=== PATIENT | male | born 2005 | race Caucasian/White ===

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

== ENCOUNTER → 2025-01-13 09:54 | Outpatient (BNVA) | payer BC, MEDICAID, SELFPAY | PROVIDERS: Family Provider Nurse Practitioner; PCP Nurse Practitioner; Visit Provider Clinical Nurse Specialist Adult Health | DX: R50.9 Fever, unspecified (principal); Z91.89 Other specified personal risk factors, not elsewhere classified | CPT/HCPCS: 86618; 86666; 86757 ==

== ENCOUNTER → 2025-02-17 11:26 | Outpatient (BNVA) | payer BC, MEDICAID, SELFPAY | PROVIDERS: Family Provider Nurse Practitioner; PCP Nurse Practitioner; Visit Provider Nurse Practitioner | DX: Z13.6 Encounter for screening for cardiovascular disorders (principal); R74.01 Elevation of levels of liver transaminase levels; E55.9 Vitamin D deficiency, unspecified | CPT/HCPCS: 80053; 80061; 82306; 82607; 85025; 85651; 86140; 87491; 87591 ==

== ENCOUNTER 2025-02-27 10:33 | Outpatient (CLI) | payer BC, MEDICAID, SELFPAY ==
--- NOTE | 2025-02-27 10:36 | XR_ITS ---
WS: [email or web address] XR knee LT 3V* [id number] REASON FOR EXAM: M25.50 - Pain in unspecified joint FINDINGS: No fracture or focal bone lesion. Joint spaces of the left knee are intact and well preserved. XR/XR knee LT 3V* [id number] IMPRESSION: No significant abnormality.
--- NOTE | 2025-02-27 10:36 | XR_ITS ---
WS: [email or web address] XR knee RT 3V* [id number] REASON FOR EXAM: M25.50 - Pain in unspecified joint FINDINGS: No fracture or focal bone lesion. Joint spaces of the knee are intact and well preserved. No radiopaque foreign body identified. XR/XR knee RT 3V* [id number] IMPRESSION: No significant bone or joint abnormality.
--- NOTE | 2025-02-27 10:36 | XR_ITS ---
WS: [email or web address] XR lumbar spine 2-3V* [id number] REASON FOR EXAM: M25.50 - Pain in unspecified joint FINDINGS: Mild straightening of the normal lordosis. No vertebral body compression deformity or focal lesion. Intervertebral disc spaces are intact and well preserved. No spondylolysis. No significant spondylolisthesis. XR/XR lumbar spine 2-3V* [id number] IMPRESSION: Mild straightening of the normal lordosis. Examination is otherwise unremarkabl e.
--- NOTE | 2025-02-27 10:45 | US_ITS ---
WS: [id number] RIGHT UPPER QUADRANT ULTRASOUND HISTORY: R74.01 - Elevation of levels of liver transaminase levels COMPARISON: 07/08/2016 Liver: 16.7 cm in length. Normal size liver. Moderate hepatic steatosis has developed since 2017. No intra paddock duct dilatation. Portal Vein: Normal hepatopetal flow with monophasic waveform. Gallbladder: Normally distended gallbladder with no stones or wall thickening. CBD: 0.4 cm Pancreas: Normal size and echogenicity. Right kidney: 10.8 cm in length. Normal size and echogenicity. No hydronephrosis or mass. Aorta and IVC: Unremarkable abdominal aorta and IVC. No ascites. US/US liver [id number] IMPRESSION: 1. Normal gallbladder. 2. Mild diffuse hepatic steatosis. New since 2017.
== END 2025-02-27 10:34 | disposition home or self-care (01) ==
LOC: RAD 10:34
PROVIDERS: PCP Nurse Practitioner; Visit Provider Nurse Practitioner
DX: R74.01 Elevation of levels of liver transaminase levels (principal); M40.46 Postural lordosis, lumbar region; K76.0 Fatty (change of) liver, not elsewhere classified; M40.56 Lordosis, unspecified, lumbar region; M25.562 Pain in left knee; M25.561 Pain in right knee
CPT/HCPCS: 72100; 73562; 76705